=== PATIENT | female | born 1965 | race Asian ===

== ENCOUNTER 2020-06-05 08:55 | Outpatient (CLI) | payer OTHER ==
--- NOTE | 2020-06-05 09:57 | ULT ---
Exam: Pelvic ultrasound HISTORY: Family history of ovarian cancer. Constipation and abdominal distention. COMPARISON: None TECHNIQUE: Multiple grayscale and color Doppler images were obtained in a transabdominal and transvag inal pelvic ultrasound. Spectral analysis of the Doppler waveforms of the ovaries were performed. FINDINGS: CERVIX: Punctate echogenic foci are seen in the cervix suggesting calcifications. UTERUS: Heterogeneous in appearance. There is a heterogeneous mass seen in the fundus of the uterus w hich measures 3 cm in maximal dimensions most suggestive of a uterine fibroid. ENDOMETRIAL STRIPE: 4 mm which is at the upper limits of normal for a normal menstruating female sybil ent. No fluid or fluid collection is seen in the endometrial canal. Trace free fluid is present. RIGHT OVARY: Normal flow, without focal mass. LEFT OVARY:Not visualized or evaluated on this exam. IMPRESSION: 1. Findings likely attributable to a uterine fibroid in the fundus of the uterus. 2. Normal-appearing right ovary. 3. Left ovary is not visualized on this exam and is obscured due to shadowing from bowel gas.
== END 2020-06-05 08:56 | disposition home or self-care (01) ==
LOC: SCSULT 08:55
PROVIDERS: ATTEND Family Medicine
DX: R14.0 Abdominal distension (gaseous) (principal); Z80.41 Family history of malignant neoplasm of ovary
CPT/HCPCS: 76856